=== PATIENT | female | born 1965 | race African-American/Black ===

== ENCOUNTER 2020-04-07 13:54 | Inpatient (IN) | payer MEDICAID ==
[~2020-04-07] VITALS: Ht 160 cm; Wt 86.8 kg
[~2020-04-07 13:54] MED LIST: AMLO1CAP PO; DOCU-150 PO; FAMO40TA7 PO; FLUP5TAB PO; LEVO100T PO; OLAN10TA3 PO; ZOLP5TAB2 PO
[2020-04-07] MEDS ORDERED: IPRATROPIUM/ALBUTEROL 0.5-3(2.5)MG/3ML NEB HHN ONE (14:15)
[2020-04-07 14:38] LABS: HEMATOCRIT. 33.8 % (36.0-48.0); HEMOGLOBIN. 11.5 g/dL (12.0-16.0); MEAN CORPUSCULAR HEMOGLOBIN 31.2 pg (28.0-32.0); MEAN CORPUSCULAR VOLUME 91.7 fL (81.0-99.0); MEAN PLATELET VOLUME 9.4 fl (7.4-10.4); PLATELET 139 x1000/uL (130-400); RED BLOOD CELL COUNT 3.69 mill/uL (4.2-5.4); RED CELL DISTRIBUTION WIDTH 13.5 % (11.6-14.6)
[2020-04-07 14:49] LABS: CHLORIDE 109 mEq/L (98-107)
[2020-04-07 14:57] LABS: BETA HYDROXYBUTYRATE 0.5 mMol/L (0.0-0.3)
[2020-04-07 15:00] LABS: PLATELET ESTIMATE NORMAL
[2020-04-07] MEDS ORDERED: AZITHROMYCIN 500 MG in DEXT 5% WATER 250 ML IV SCH (15:00)
[2020-04-07] MEDS ORDERED: FENTANYL CITRATE/PF 1,000 MCG in SODIUM CHLORIDE 0.9% 80 ML IV PRN (15:15)
[2020-04-07] MEDS ORDERED: IPRATROPIUM/ALBUTEROL 0.5-3(2.5)MG/3ML NEB HHN PRN (15:30)
[2020-04-07] MEDS ORDERED: MIDAZOLAM HCL 100 MG in DEXT 5% WATER 80 ML IV PRN (15:30)
[2020-04-07] MEDS: PROPOFOL 10MG/ML 100ML 100 ML IV PRN (15:45)
[2020-04-07] MEDS ORDERED: CEFTRIAXONE 1 G PREMIX 50 ML IV SCH (16:00)
[2020-04-07 16:08] LABS: BG BASE EXCESS -2.2 mmol/L (-2.0-2.0); BG CARBOXYHEMOGLOBIN 0.1 % (0.5-1.5); BG DEOXYHEMOGLOBIN 3.3 % (0.0-5.0); BG FRACTION INSPIRED OXYGEN 80; BG HCO3 ACT 21.3 mmol/L (22.0-26.0); BG OXYGEN SATURATION 96.7 % (92.0-98.5); BG OXYHEMOGLOBIN 95.6 % (94.0-97.0); BG PCO2 31.2 mmHg (35.0-45.0); BG PH 7.452 (7.350-7.450); BG PO2 99.8 mmHg (75.0-100.0); BG SAMPLE SITE RIGHT BRACHIAL; BG TIDAL VOLUME(mL) 500 mL; BG TOTAL HEMOGLOBIN 8.5 g/dL (12.0-18.0); BG VENT MODE VENT - A/C; BG VENT RATE 16 set
[2020-04-07] MEDS: MIDAZOLAM HCL 100 MG in DEXT 5% WATER 80 ML IV PRN (16:15)
[2020-04-07 16:26] LABS: PARTIAL THROMBOPLASTIN TIME 31.3 sec (23.4-31.0); PROTHROMBIN TIME 10.8 sec (9.6-11.0)
[2020-04-07 18:15] LABS: CLARITY URINE CLEAR (CLEAR); COLOR URINE YELLOW (YELLOW); KETONES URINE TRACE (NEGATIVE); LEUKOCYTE ESTERASE URINE NEGATIVE (NEGATIVE); NITRITE URINE NEGATIVE (NEGATIVE); OCCULT BLOOD URINE 1+ (NEGATIVE); PH URINE 5.5 (4.5-8.0); PROTEIN URINE 2+ (NEGATIVE); SPECIFIC GRAVITY URINE 1.026 (1.005-1.030)
[2020-04-07 18:32] LABS: *AMPHETAMINES SCREEN URINE NEGATIVE (NEGATIVE); *BARBITURATES SCREEN URINE NEGATIVE (NEGATIVE); *BENZODIAZEPINES SCREEN URINE NEGATIVE (NEGATIVE); *COCAINE SCREEN URINE NEGATIVE (NEGATIVE); METHADONE URINE SCREEN NEGATIVE (NEGATIVE)
[2020-04-07 18:34] LABS: CANNABINOID URINE SCREEN NEGATIVE (NEGATIVE); OPIATES URINE SCREEN PRESUMTIVE POSITIVE (NEGATIVE); PHENCYCLIDINE URINE SCREEN PRESUMTIVE POSITIVE (NEGATIVE)
[2020-04-07] MEDS: IPRATROPIUM/ALBUTEROL 0.5-3(2.5)MG/3ML NEB HHN SCH (20:35)
[2020-04-08] MEDS: IPRATROPIUM/ALBUTEROL 0.5-3(2.5)MG/3ML NEB HHN SCH ×6 (00:20→21:11)
[2020-04-08] MEDS: PROPOFOL 10MG/ML 100ML 100 ML IV PRN ×2 (04:08→11:38)
[2020-04-08 07:56] LABS: BG BASE EXCESS -0.1 mmol/L (-2.0-2.0); BG CARBOXYHEMOGLOBIN 0.3 % (0.5-1.5); BG DEOXYHEMOGLOBIN 0.9 % (0.0-5.0); BG HCO3 ACT 22.2 mmol/L (22.0-26.0); BG METHEMOGLOBIN 0.2 % (0.0-1.5); BG OXYGEN SATURATION 99.1 % (92.0-98.5); BG OXYHEMOGLOBIN 98.6 % (94.0-97.0); BG PCO2 28.2 mmHg (35.0-45.0); BG PH 7.513 (7.350-7.450); BG PO2 193.8 mmHg (75.0-100.0); BG SAMPLE SITE RIGHT RADIAL; BG TIDAL VOLUME(mL) 500 mL; BG TOTAL HEMOGLOBIN 10.5 g/dL (12.0-18.0); BG VENT MODE VENT - A/C; BG VENT RATE 20 set
[2020-04-08] MEDS: MIDAZOLAM HCL 100 MG in DEXT 5% WATER 80 ML IV PRN (08:19)
[2020-04-08 11:11] LABS: BASOPHILS % 0.2 % (0.0-2.0); EOSINOPHILS % 0.5 % (0.0-5.0); HEMATOCRIT. 30.4 % (36.0-48.0); HEMOGLOBIN. 10.6 g/dL (12.0-16.0); LYMPHOCYTES % 8.6 % (20.0-50.0); MEAN CORPUSCULAR HEMOGLOBIN 31.3 pg (28.0-32.0); MEAN CORPUSCULAR VOLUME 89.6 fL (81.0-99.0); MEAN PLATELET VOLUME 9.7 fl (7.4-10.4); NEUTROPHILS % 87.7 % (40.0-76.0); PLATELET 147 x1000/uL (130-400); RED CELL DISTRIBUTION WIDTH 13.4 % (11.6-14.6)
[2020-04-08 11:16] LABS: CHLORIDE 107 mEq/L (98-107)
[2020-04-08] MEDS: ENOXAPARIN 60MG/0.6ML SYR SUBCUT SCH ×2 (11:37→22:30)
[2020-04-08] MEDS: PANTOPRAZOLE SODIUM 40 MG/VIAL IV SCH (11:37)
[2020-04-08] MEDS: AZITHROMYCIN 500 MG in DEXT 5% WATER 250 ML IV SCH (15:05)
[2020-04-08] MEDS: CEFTRIAXONE 1 G PREMIX 50 ML IV SCH (16:18)
[2020-04-08] MEDS: DEXAMETHASONE 10 MG/ML VIAL IV SCH (20:53)
[2020-04-08] MEDS ORDERED: ACETAMINOPHEN 650MG SUPP PR NR (22:05)
[2020-04-08] MEDS ORDERED: PROPOFOL 10 MG/ML IV PRN (22:07)
[2020-04-09] VITALS (64 sets, daily range): BP systolic 84–132; BP diastolic 47–79
[2020-04-09] MEDS: IPRATROPIUM/ALBUTEROL 0.5-3(2.5)MG/3ML NEB HHN SCH ×6 (01:03→21:12)
[2020-04-09 09:10] LABS: BG BASE EXCESS 1.4 mmol/L (-2.0-2.0); BG CARBOXYHEMOGLOBIN 0.3 % (0.5-1.5); BG DEOXYHEMOGLOBIN 1.7 % (0.0-5.0); BG FRACTION INSPIRED OXYGEN 55; BG HCO3 ACT 25.4 mmol/L (22.0-26.0); BG METHEMOGLOBIN 0.2 % (0.0-1.5); BG OXYGEN SATURATION 98.3 % (92.0-98.5); BG OXYHEMOGLOBIN 97.8 % (94.0-97.0); BG PCO2 38.1 mmHg (35.0-45.0); BG PH 7.442 (7.350-7.450); BG PO2 133.6 mmHg (75.0-100.0); BG SAMPLE SITE RIGHT RADIAL; BG TIDAL VOLUME(mL) 500 mL; BG TOTAL HEMOGLOBIN 11.6 g/dL (12.0-18.0); BG VENT MODE VENT - A/C; BG VENT RATE 16 set
[2020-04-09] MEDS: PANTOPRAZOLE SODIUM 40 MG/VIAL IV SCH (09:32)
[2020-04-09] MEDS: ENOXAPARIN 60MG/0.6ML SYR SUBCUT SCH (09:32)
[2020-04-09] MEDS: FENTANYL CITRATE/PF 1,000 MCG in SODIUM CHLORIDE 0.9% 80 ML IV PRN ×2 (10:46→18:39)
[2020-04-09] MEDS: AZITHROMYCIN 500 MG in DEXT 5% WATER 250 ML IV SCH (15:02)
[2020-04-09] MEDS: CEFTRIAXONE 1 G PREMIX 50 ML IV SCH (15:02)
[2020-04-09] MEDS: DEXAMETHASONE 10 MG/ML VIAL IV SCH (20:25)
[2020-04-09] MEDS: ENOXAPARIN 80MG/0.8ML SYR SUBCUT SCH (20:26)
[2020-04-09] MEDS: MIDAZOLAM HCL 100 MG in DEXT 5% WATER 80 ML IV PRN (21:49)
[2020-04-10] VITALS (96 sets, daily range): BP systolic 77–170; BP diastolic 22–101
[2020-04-10] MEDS: IPRATROPIUM/ALBUTEROL 0.5-3(2.5)MG/3ML NEB HHN SCH ×6 (00:20→20:21)
[2020-04-10] MEDS: FENTANYL CITRATE/PF 1,000 MCG in SODIUM CHLORIDE 0.9% 80 ML IV PRN ×3 (04:47→21:40)
[2020-04-10 05:32] LABS: HEMATOCRIT. 31.1 % (36.0-48.0); HEMOGLOBIN. 10.6 g/dL (12.0-16.0); MEAN CORPUSCULAR HEMOGLOBIN 30.9 pg (28.0-32.0); MEAN CORPUSCULAR VOLUME 90.4 fL (81.0-99.0); MEAN PLATELET VOLUME 9.6 fl (7.4-10.4); PLATELET 211 x1000/uL (130-400); RED BLOOD CELL COUNT 3.45 mill/uL (4.2-5.4); RED CELL DISTRIBUTION WIDTH 13.6 % (11.6-14.6)
[2020-04-10 05:45] LABS: CHLORIDE 107 mEq/L (98-107)
[2020-04-10] MEDS: ENOXAPARIN 80MG/0.8ML SYR SUBCUT SCH ×2 (09:00→20:13)
[2020-04-10] MEDS: PANTOPRAZOLE SODIUM 40 MG/VIAL IV SCH (09:00)
[2020-04-10 09:50] LABS: BG BASE EXCESS 3.3 mmol/L (-2.0-2.0); BG CARBOXYHEMOGLOBIN 0.3 % (0.5-1.5); BG DEOXYHEMOGLOBIN 3.8 % (0.0-5.0); BG FRACTION INSPIRED OXYGEN 40; BG METHEMOGLOBIN 0.1 % (0.0-1.5); BG OXYGEN SATURATION 96.2 % (92.0-98.5); BG OXYHEMOGLOBIN 95.8 % (94.0-97.0); BG PCO2 37.7 mmHg (35.0-45.0); BG PH 7.473 (7.350-7.450); BG PO2 84.1 mmHg (75.0-100.0); BG SAMPLE SITE RIGHT RADIAL; BG TIDAL VOLUME(mL) 500 mL; BG TOTAL HEMOGLOBIN 10.3 g/dL (12.0-18.0); BG VENT MODE AC; BG VENT RATE 16 set
[2020-04-10 10:25] LABS: PLATELET ESTIMATE NORMAL
[2020-04-10] MEDS: MIDAZOLAM HCL 100 MG in DEXT 5% WATER 80 ML IV PRN (13:11)
[2020-04-10] MEDS: AZITHROMYCIN 500 MG in DEXT 5% WATER 250 ML IV SCH (15:45)
[2020-04-10] MEDS: CEFTRIAXONE 1 G PREMIX 50 ML IV SCH (16:59)
[2020-04-10] MEDS: DEXAMETHASONE 10 MG/ML VIAL IV SCH (20:13)
[2020-04-11] VITALS (98 sets, daily range): BP systolic 95–223; BP diastolic 57–92
[2020-04-11] MEDS: MIDAZOLAM HCL 100 MG in DEXT 5% WATER 80 ML IV PRN ×3 (00:13→20:01)
[2020-04-11] MEDS: IPRATROPIUM/ALBUTEROL 0.5-3(2.5)MG/3ML NEB HHN SCH ×6 (00:45→15:34)
[2020-04-11] MEDS: FENTANYL CITRATE/PF 2,500 MCG in SODIUM CHLORIDE 0.9% 200 ML IV PRN ×2 (04:12→20:00)
[2020-04-11 05:49] LABS: BASOPHILS % 0.2 % (0.0-2.0); EOSINOPHILS % 0.3 % (0.0-5.0); HEMATOCRIT. 37.8 % (36.0-48.0); HEMOGLOBIN. 12.7 g/dL (12.0-16.0); LYMPHOCYTES % 7.1 % (20.0-50.0); MEAN CORPUSCULAR HEMOGLOBIN 30.6 pg (28.0-32.0); MEAN CORPUSCULAR VOLUME 91.3 fL (81.0-99.0); MEAN PLATELET VOLUME 9.9 fl (7.4-10.4); MONOCYTES % 5.8 % (2.0-8.0); NEUTROPHILS % 86.6 % (40.0-76.0); PLATELET 240 x1000/uL (130-400); RED BLOOD CELL COUNT 4.14 mill/uL (4.2-5.4); RED CELL DISTRIBUTION WIDTH 13.5 % (11.6-14.6)
[2020-04-11 06:02] LABS: CHLORIDE 108 mEq/L (98-107)
[2020-04-11 07:53] LABS: BG CARBOXYHEMOGLOBIN 0.3 % (0.5-1.5); BG DEOXYHEMOGLOBIN 5.5 % (0.0-5.0); BG HCO3 ACT 23.5 mmol/L (22.0-26.0); BG METHEMOGLOBIN 0.2 % (0.0-1.5); BG OXYGEN SATURATION 94.5 % (92.0-98.5); BG PCO2 34.1 mmHg (35.0-45.0); BG PH 7.456 (7.350-7.450); BG PO2 74.9 mmHg (75.0-100.0); BG SAMPLE SITE RIGHT BRACHIAL; BG TIDAL VOLUME(mL) 500 mL; BG TOTAL HEMOGLOBIN 10.6 g/dL (12.0-18.0); BG VENT MODE VENT - A/C; BG VENT RATE 16 set
[2020-04-11] MEDS: PANTOPRAZOLE SODIUM 40 MG/VIAL IV SCH (09:14)
[2020-04-11] MEDS: ENOXAPARIN 80MG/0.8ML SYR SUBCUT SCH ×2 (09:14→20:07)
[2020-04-11] MEDS: CEFTRIAXONE 1 G PREMIX 50 ML IV SCH (16:08)
[2020-04-11] MEDS: AZITHROMYCIN 500 MG in DEXT 5% WATER 250 ML IV SCH (16:09)
[2020-04-11] MEDS: DEXAMETHASONE 10 MG/ML VIAL IV SCH (20:07)
[2020-04-12] VITALS (99 sets, daily range): BP systolic 72–193; BP diastolic 18–93
[2020-04-12] MEDS: IPRATROPIUM/ALBUTEROL 0.5-3(2.5)MG/3ML NEB HHN SCH ×4 (00:30→20:20)
[2020-04-12] MEDS ORDERED: NOREPINEPHRINE 4MG/250ML PMX 250 ML IV PRN (02:45)
[2020-04-12] MEDS: NOREPINEPHRINE 8 MG in DEXTROSE 5% WATER 250 ML IV PRN (04:05)
[2020-04-12 05:47] LABS: HEMATOCRIT. 30.8 % (36.0-48.0); HEMOGLOBIN. 10.6 g/dL (12.0-16.0); MEAN CORPUSCULAR HEMOGLOBIN 31.4 pg (28.0-32.0); MEAN CORPUSCULAR VOLUME 90.9 fL (81.0-99.0); MEAN PLATELET VOLUME 9.3 fl (7.4-10.4); PLATELET 280 x1000/uL (130-400); RED BLOOD CELL COUNT 3.39 mill/uL (4.2-5.4); RED CELL DISTRIBUTION WIDTH 13.6 % (11.6-14.6)
[2020-04-12 05:57] LABS: CHLORIDE 111 mEq/L (98-107)
[2020-04-12] MEDS: MIDAZOLAM HCL 100 MG in DEXT 5% WATER 80 ML IV PRN ×2 (07:45→17:29)
[2020-04-12] MEDS: PANTOPRAZOLE SODIUM 40 MG/VIAL IV SCH (08:16)
[2020-04-12] MEDS: ENOXAPARIN 80MG/0.8ML SYR SUBCUT SCH ×2 (08:18→20:51)
[2020-04-12] MEDS: ACETAMINOPHEN 650MG/20.3ML UDC PO PRN (09:10)
[2020-04-12 09:32] LABS: BG BASE EXCESS 1.1 mmol/L (-2.0-2.0); BG CARBOXYHEMOGLOBIN 0.2 % (0.5-1.5); BG DEOXYHEMOGLOBIN 5.9 % (0.0-5.0); BG FRACTION INSPIRED OXYGEN 60; BG HCO3 ACT 25.4 mmol/L (22.0-26.0); BG METHEMOGLOBIN 0.3 % (0.0-1.5); BG OXYGEN SATURATION 94.1 % (92.0-98.5); BG OXYHEMOGLOBIN 93.6 % (94.0-97.0); BG PH 7.431 (7.350-7.450); BG PO2 72.3 mmHg (75.0-100.0); BG SAMPLE SITE RIGHT RADIAL; BG TIDAL VOLUME(mL) 500 mL; BG VENT MODE VENT-PRVC; BG VENT RATE 14 set
[2020-04-12 10:38] LABS: PLATELET ESTIMATE NORMAL
[2020-04-12] MEDS: CEFTRIAXONE 1 G PREMIX 50 ML IV SCH (16:24)
[2020-04-12] MEDS: AZITHROMYCIN 500 MG in DEXT 5% WATER 250 ML IV SCH (16:24)
[2020-04-12] MEDS: FENTANYL CITRATE/PF 2,500 MCG in SODIUM CHLORIDE 0.9% 200 ML IV PRN (17:21)
[2020-04-12] MEDS: DEXAMETHASONE 10 MG/ML VIAL IV SCH (20:50)
[2020-04-13] VITALS (92 sets, daily range): BP systolic 81–148; BP diastolic 45–89
[2020-04-13] MEDS: MIDAZOLAM HCL 100 MG in DEXT 5% WATER 80 ML IV PRN ×2 (05:15→21:30)
[2020-04-13 05:36] LABS: CHLORIDE 108 mEq/L (98-107)
[2020-04-13 05:38] LABS: HEMATOCRIT. 29.4 % (36.0-48.0); HEMOGLOBIN. 10.2 g/dL (12.0-16.0); MEAN CORPUSCULAR HEMOGLOBIN 31.1 pg (28.0-32.0); PLATELET 257 x1000/uL (130-400); RED BLOOD CELL COUNT 3.26 mill/uL (4.2-5.4); RED CELL DISTRIBUTION WIDTH 13.8 % (11.6-14.6)
[2020-04-13 05:46] LABS: PHOSPHORUS 3.8 mg/dL (2.5-4.9)
[2020-04-13 06:09] LABS: HEPATITIS B SURFACE ANTIGEN NEGATIVE
[2020-04-13 06:39] LABS: HEPATITIS A AB IGM NEGATIVE (NEGATIVE)
[2020-04-13 06:44] LABS: C REACTIVE PROTEIN QUANT > 190.0 mg/L (0.0-3.0)
[2020-04-13 09:33] LABS: BG BASE EXCESS -1.5 mmol/L (-2.0-2.0); BG CARBOXYHEMOGLOBIN 0.3 % (0.5-1.5); BG DEOXYHEMOGLOBIN 8.8 % (0.0-5.0); BG FRACTION INSPIRED OXYGEN 60; BG HCO3 ACT 22.3 mmol/L (22.0-26.0); BG METHEMOGLOBIN 1.2 % (0.0-1.5); BG OXYGEN SATURATION 91.1 % (92.0-98.5); BG OXYHEMOGLOBIN 89.7 % (94.0-97.0); BG PH 7.434 (7.350-7.450); BG PO2 62.4 mmHg (75.0-100.0); BG SAMPLE SITE RIGHT RADIAL; BG TIDAL VOLUME(mL) 500 mL; BG TOTAL HEMOGLOBIN 10.7 g/dL (12.0-18.0); BG VENT MODE VENT- PRVC; BG VENT RATE 14 set
[2020-04-13] MEDS: PANTOPRAZOLE SODIUM 40 MG/VIAL IV SCH (09:35)
[2020-04-13] MEDS: ENOXAPARIN 80MG/0.8ML SYR SUBCUT SCH ×2 (09:36→22:26)
[2020-04-13] MEDS ORDERED: LACTULOSE 20G/30ML UDC PO NR (10:00)
[2020-04-13] MEDS: DOCUSATE SODIUM 250MG CAPSULE PO SCH (10:00)
[2020-04-13] MEDS: IPRATROPIUM/ALBUTEROL 0.5-3(2.5)MG/3ML NEB HHN SCH ×4 (10:02→21:35)
[2020-04-13 10:05] LABS: PLATELET ESTIMATE NORMAL
[2020-04-13] MEDS: NOREPINEPHRINE 8 MG in DEXTROSE 5% WATER 250 ML IV PRN (17:24)
[2020-04-13] MEDS: FENTANYL CITRATE/PF 2,500 MCG in SODIUM CHLORIDE 0.9% 200 ML IV PRN (19:52)
[2020-04-13] MEDS: DEXAMETHASONE 10 MG/ML VIAL IV SCH (22:24)
[2020-04-13] MEDS: ACETAMINOPHEN 650MG/20.3ML UDC PO PRN (22:27)
[2020-04-14] VITALS (68 sets, daily range): BP systolic 69–147; BP diastolic 21–87
[2020-04-14] MEDS: IPRATROPIUM/ALBUTEROL 0.5-3(2.5)MG/3ML NEB HHN SCH ×6 (01:25→20:15)
[2020-04-14 04:55] LABS: HEMATOCRIT. 30.9 % (36.0-48.0); HEMOGLOBIN. 10.2 g/dL (12.0-16.0); MEAN CORPUSCULAR VOLUME 90.9 fL (81.0-99.0); MEAN PLATELET VOLUME 9.2 fl (7.4-10.4); PLATELET 308 x1000/uL (130-400); RED CELL DISTRIBUTION WIDTH 14.2 % (11.6-14.6)
[2020-04-14 05:03] LABS: CHLORIDE 107 mEq/L (98-107)
[2020-04-14] MEDS ORDERED: BISACODYL 10MG SUPP PR SCH (08:30)
[2020-04-14 08:48] LABS: PLATELET ESTIMATE NORMAL
[2020-04-14] MEDS: ENOXAPARIN 80MG/0.8ML SYR SUBCUT SCH ×2 (08:50→19:59)
[2020-04-14] MEDS: DOCUSATE SODIUM 250MG CAPSULE PO SCH (08:50)
[2020-04-14] MEDS: PANTOPRAZOLE SODIUM 40 MG/VIAL IV SCH (09:00)
[2020-04-14 09:20] LABS: BG BASE EXCESS 2.2 mmol/L (-2.0-2.0); BG CARBOXYHEMOGLOBIN 0.2 % (0.5-1.5); BG DEOXYHEMOGLOBIN 1.8 % (0.0-5.0); BG FRACTION INSPIRED OXYGEN 60; BG HCO3 ACT 26.1 mmol/L (22.0-26.0); BG METHEMOGLOBIN 0.2 % (0.0-1.5); BG OXYGEN SATURATION 98.2 % (92.0-98.5); BG OXYHEMOGLOBIN 97.8 % (94.0-97.0); BG PCO2 37.8 mmHg (35.0-45.0); BG PH 7.457 (7.350-7.450); BG PO2 125.9 mmHg (75.0-100.0); BG SAMPLE SITE RIGHT RADIAL; BG TIDAL VOLUME(mL) 500 mL; BG TOTAL HEMOGLOBIN 10.4 g/dL (12.0-18.0); BG VENT MODE VENT-PRVC; BG VENT RATE 14 set
[2020-04-14] MEDS: NA PHOS,M-B/NA PHOS,DI-BA ENEMA 118ML PR PRN ×2 (16:45→17:30)
[2020-04-14] MEDS: MIDAZOLAM HCL 100 MG in DEXT 5% WATER 80 ML IV PRN (17:19)
[2020-04-14] MEDS: DEXAMETHASONE 10 MG/ML VIAL IV SCH (19:58)
[2020-04-14] MEDS: GUAIFENESIN 200MG/10ML SUGAR FREE UDC PO PRN (19:59)
[2020-04-14] MEDS: ACETAMINOPHEN 650MG/20.3ML UDC PO PRN (20:00)
[2020-04-15] VITALS (30 sets, daily range): BP systolic 94–157; BP diastolic 46–75
[2020-04-15] MEDS: IPRATROPIUM/ALBUTEROL 0.5-3(2.5)MG/3ML NEB HHN SCH ×6 (00:58→20:16)
[2020-04-15 05:24] LABS: HEMOGLOBIN. 9.6 g/dL (12.0-16.0); MEAN CORPUSCULAR VOLUME 90.6 fL (81.0-99.0); MEAN PLATELET VOLUME 9.2 fl (7.4-10.4); PLATELET 313 x1000/uL (130-400); RED CELL DISTRIBUTION WIDTH 14.1 % (11.6-14.6)
[2020-04-15 05:26] LABS: CHLORIDE 109 mEq/L (98-107)
[2020-04-15 08:26] LABS: BG BASE EXCESS 6.4 mmol/L (-2.0-2.0); BG CARBOXYHEMOGLOBIN 0.2 % (0.5-1.5); BG DEOXYHEMOGLOBIN 2.3 % (0.0-5.0); BG FRACTION INSPIRED OXYGEN 60; BG METHEMOGLOBIN 0.9 % (0.0-1.5); BG OXYGEN SATURATION 97.7 % (92.0-98.5); BG OXYHEMOGLOBIN 96.6 % (94.0-97.0); BG PCO2 51.7 mmHg (35.0-45.0); BG PO2 125.1 mmHg (75.0-100.0); BG SAMPLE SITE RIGHT RADIAL; BG TIDAL VOLUME(mL) 500 mL; BG TOTAL HEMOGLOBIN 9.9 g/dL (12.0-18.0); BG VENT MODE PRVC; BG VENT RATE 12 set
[2020-04-15] MEDS: PANTOPRAZOLE SODIUM 40 MG/VIAL IV SCH (09:00)
[2020-04-15] MEDS: DOCUSATE SODIUM 250MG CAPSULE PO SCH (09:00)
[2020-04-15] MEDS: ENOXAPARIN 80MG/0.8ML SYR SUBCUT SCH ×2 (09:00→22:04)
[2020-04-15 09:47] LABS: PLATELET ESTIMATE NORMAL
[2020-04-15] MEDS ORDERED: REMDESIVIR 200 MG in SODIUM CHLORIDE 0.9% 250 ML IV NR (14:00)
[2020-04-15] MEDS: FENTANYL CITRATE/PF 2,500 MCG in SODIUM CHLORIDE 0.9% 200 ML IV PRN (15:09)
[2020-04-15] MEDS: DEXAMETHASONE 10 MG/ML VIAL IV SCH (22:02)
[2020-04-15] MEDS: GUAIFENESIN 200MG/10ML SUGAR FREE UDC PO PRN (22:05)
[2020-04-15] MEDS: ACETAMINOPHEN 650MG/20.3ML UDC PO PRN (22:09)
[2020-04-16] VITALS (82 sets, daily range): BP systolic 80–142; BP diastolic 42–104
[2020-04-16] MEDS: IPRATROPIUM/ALBUTEROL 0.5-3(2.5)MG/3ML NEB HHN SCH ×6 (00:37→20:50)
[2020-04-16 05:24] LABS: HEMATOCRIT. 28.3 % (36.0-48.0); HEMOGLOBIN. 9.2 g/dL (12.0-16.0); MEAN CORPUSCULAR HEMOGLOBIN 29.6 pg (28.0-32.0); MEAN PLATELET VOLUME 8.7 fl (7.4-10.4); PLATELET 302 x1000/uL (130-400); RED BLOOD CELL COUNT 3.11 mill/uL (4.2-5.4); RED CELL DISTRIBUTION WIDTH 14.1 % (11.6-14.6)
[2020-04-16 05:28] LABS: CHLORIDE 110 mEq/L (98-107)
[2020-04-16] MEDS: PANTOPRAZOLE SODIUM 40 MG/VIAL IV SCH (08:16)
[2020-04-16] MEDS: ENOXAPARIN 80MG/0.8ML SYR SUBCUT SCH ×2 (08:17→20:47)
[2020-04-16 08:20] LABS: PLATELET ESTIMATE NORMAL
[2020-04-16 09:07] LABS: BG BASE EXCESS 2.8 mmol/L (-2.0-2.0); BG CARBOXYHEMOGLOBIN 0.3 % (0.5-1.5); BG DEOXYHEMOGLOBIN 2.1 % (0.0-5.0); BG FRACTION INSPIRED OXYGEN 50; BG HCO3 ACT 27.1 mmol/L (22.0-26.0); BG METHEMOGLOBIN 0.4 % (0.0-1.5); BG OXYGEN SATURATION 97.9 % (92.0-98.5); BG OXYHEMOGLOBIN 97.2 % (94.0-97.0); BG PCO2 40.4 mmHg (35.0-45.0); BG PH 7.444 (7.350-7.450); BG PO2 111.2 mmHg (75.0-100.0); BG SAMPLE SITE RIGHT BRACHIAL; BG TIDAL VOLUME(mL) 500 mL; BG TOTAL HEMOGLOBIN 9.2 g/dL (12.0-18.0); BG VENT MODE PRVC; BG VENT RATE 12 set
[2020-04-16] MEDS: DOCUSATE SODIUM SUGAR FREE 100MG/10ML UDC NG SCH (11:03)
[2020-04-16] MEDS: PIPERACILLIN/TAZOBACTAM 3.375 G in DEXT 5% WATER 100 ML IV SCH ×3 (12:44→23:11)
[2020-04-16] MEDS: REMDESIVIR 100 MG in SODIUM CHLORIDE 0.9% 250 ML IV SCH (15:22)
[2020-04-16] MEDS: GUAIFENESIN 200MG/10ML SUGAR FREE UDC PO PRN ×2 (18:38→20:45)
[2020-04-16] MEDS: MIDAZOLAM HCL 100 MG in DEXT 5% WATER 80 ML IV PRN (20:44)
[2020-04-16] MEDS: ACETAMINOPHEN 650MG/20.3ML UDC PO PRN (20:45)
[2020-04-16] MEDS: DEXAMETHASONE 4MG/ML 1ML VIAL IV SCH (20:57)
[2020-04-17] VITALS (86 sets, daily range): BP systolic 52–142; BP diastolic 23–83
[2020-04-17] MEDS: IPRATROPIUM/ALBUTEROL 0.5-3(2.5)MG/3ML NEB HHN SCH ×6 (00:24→20:59)
[2020-04-17 05:47] LABS: HEMATOCRIT. 28.5 % (36.0-48.0); HEMOGLOBIN. 9.3 g/dL (12.0-16.0); MEAN CORPUSCULAR VOLUME 91.5 fL (81.0-99.0); MEAN PLATELET VOLUME 8.9 fl (7.4-10.4); PLATELET 295 x1000/uL (130-400); RED BLOOD CELL COUNT 3.11 mill/uL (4.2-5.4); RED CELL DISTRIBUTION WIDTH 13.6 % (11.6-14.6)
[2020-04-17 06:04] LABS: CHLORIDE 106 mEq/L (98-107)
[2020-04-17] MEDS: PIPERACILLIN/TAZOBACTAM 3.375 G in DEXT 5% WATER 100 ML IV SCH ×4 (06:41→22:43)
[2020-04-17] MEDS: PANTOPRAZOLE SODIUM 40 MG/VIAL IV SCH (08:00)
[2020-04-17] MEDS: GUAIFENESIN 200MG/10ML SUGAR FREE UDC PO PRN ×3 (08:00→20:22)
[2020-04-17] MEDS: ENOXAPARIN 80MG/0.8ML SYR SUBCUT SCH ×2 (08:00→20:22)
[2020-04-17] MEDS: ACETAMINOPHEN 650MG/20.3ML UDC PO PRN ×3 (08:00→22:47)
[2020-04-17] MEDS: DOCUSATE SODIUM SUGAR FREE 100MG/10ML UDC NG SCH (08:00)
[2020-04-17 09:27] LABS: BG BASE EXCESS 1.9 mmol/L (-2.0-2.0); BG CARBOXYHEMOGLOBIN 0.3 % (0.5-1.5); BG DEOXYHEMOGLOBIN 4.8 % (0.0-5.0); BG FRACTION INSPIRED OXYGEN 50; BG HCO3 ACT 26.2 mmol/L (22.0-26.0); BG METHEMOGLOBIN 0.1 % (0.0-1.5); BG OXYGEN SATURATION 95.2 % (92.0-98.5); BG OXYHEMOGLOBIN 94.8 % (94.0-97.0); BG PCO2 39.8 mmHg (35.0-45.0); BG PH 7.436 (7.350-7.450); BG PO2 79.9 mmHg (75.0-100.0); BG SAMPLE SITE RIGHT RADIAL; BG TIDAL VOLUME(mL) 500 mL; BG TOTAL HEMOGLOBIN 9.8 g/dL (12.0-18.0); BG VENT MODE VENT- PRVC; BG VENT RATE 12 set
[2020-04-17 09:55] LABS: PLATELET ESTIMATE NORMAL
[2020-04-17] MEDS: REMDESIVIR 100 MG in SODIUM CHLORIDE 0.9% 250 ML IV SCH (17:37)
[2020-04-17] MEDS: DEXAMETHASONE 4MG/ML 1ML VIAL IV SCH (20:21)
[2020-04-17] MEDS: FENTANYL CITRATE/PF 1,000 MCG in SODIUM CHLORIDE 0.9% 80 ML IV PRN (23:47)
[2020-04-18] VITALS (66 sets, daily range): BP systolic 57–117; BP diastolic 26–63
[2020-04-18] MEDS: IPRATROPIUM/ALBUTEROL 0.5-3(2.5)MG/3ML NEB HHN SCH ×6 (00:52→21:00)
[2020-04-18] MEDS: ACETAMINOPHEN 650MG/20.3ML UDC PO PRN ×3 (03:18→21:56)
[2020-04-18] MEDS: PIPERACILLIN/TAZOBACTAM 3.375 G in DEXT 5% WATER 100 ML IV SCH ×4 (05:45→23:20)
[2020-04-18 05:51] LABS: HEMOGLOBIN. 10.3 g/dL (12.0-16.0); MEAN CORPUSCULAR HEMOGLOBIN 30.6 pg (28.0-32.0); MEAN CORPUSCULAR VOLUME 91.9 fL (81.0-99.0); MEAN PLATELET VOLUME 9.5 fl (7.4-10.4); PLATELET 299 x1000/uL (130-400); RED BLOOD CELL COUNT 3.37 mill/uL (4.2-5.4); RED CELL DISTRIBUTION WIDTH 13.7 % (11.6-14.6)
[2020-04-18 05:53] LABS: CHLORIDE 106 mEq/L (98-107)
[2020-04-18] MEDS: PANTOPRAZOLE SODIUM 40 MG/VIAL IV SCH (08:06)
[2020-04-18] MEDS: DOCUSATE SODIUM SUGAR FREE 100MG/10ML UDC NG SCH (08:06)
[2020-04-18] MEDS: GUAIFENESIN 200MG/10ML SUGAR FREE UDC PO PRN ×2 (08:06→21:55)
[2020-04-18] MEDS: ENOXAPARIN 80MG/0.8ML SYR SUBCUT SCH (08:07)
[2020-04-18 09:06] LABS: PLATELET ESTIMATE NORMAL
[2020-04-18] MEDS ORDERED: FUROSEMIDE 40MG/4ML VIAL IVP NR (10:15)
[2020-04-18 10:16] LABS: BG BASE EXCESS 2.5 mmol/L (-2.0-2.0); BG CARBOXYHEMOGLOBIN 0.7 % (0.5-1.5); BG DEOXYHEMOGLOBIN 13.1 % (0.0-5.0); BG FRACTION INSPIRED OXYGEN 50; BG HCO3 ACT 26.7 mmol/L (22.0-26.0); BG METHEMOGLOBIN 0.3 % (0.0-1.5); BG OXYGEN SATURATION 86.8 % (92.0-98.5); BG OXYHEMOGLOBIN 85.9 % (94.0-97.0); BG PH 7.443 (7.350-7.450); BG PO2 52.4 mmHg (75.0-100.0); BG SAMPLE SITE LEFT RADIAL; BG TIDAL VOLUME(mL) 500 mL; BG TOTAL HEMOGLOBIN 8.4 g/dL (12.0-18.0); BG VENT MODE VENT - A/C; BG VENT RATE 12 set
[2020-04-18] MEDS: REMDESIVIR 100 MG in SODIUM CHLORIDE 0.9% 250 ML IV SCH (14:55)
[2020-04-18] MEDS: MIDAZOLAM HCL 100 MG in DEXT 5% WATER 80 ML IV PRN (19:20)
[2020-04-18] MEDS: ENOXAPARIN 100MG/ML SYR SUBCUT SCH (21:55)
[2020-04-19] VITALS (62 sets, daily range): BP systolic 57–141; BP diastolic 16–80
[2020-04-19] MEDS: IPRATROPIUM/ALBUTEROL 0.5-3(2.5)MG/3ML NEB HHN SCH ×5 (00:20→20:25)
[2020-04-19 05:53] LABS: HEMATOCRIT. 27.8 % (36.0-48.0); HEMOGLOBIN. 9.1 g/dL (12.0-16.0); MEAN CORPUSCULAR HEMOGLOBIN 29.7 pg (28.0-32.0); MEAN CORPUSCULAR VOLUME 90.5 fL (81.0-99.0); MEAN PLATELET VOLUME 9.1 fl (7.4-10.4); PLATELET 281 x1000/uL (130-400); RED BLOOD CELL COUNT 3.08 mill/uL (4.2-5.4); RED CELL DISTRIBUTION WIDTH 13.9 % (11.6-14.6)
[2020-04-19 05:55] LABS: CHLORIDE 104 mEq/L (98-107)
[2020-04-19] MEDS: PIPERACILLIN/TAZOBACTAM 3.375 G in DEXT 5% WATER 100 ML IV SCH ×4 (07:12→22:19)
[2020-04-19] MEDS: ENOXAPARIN 100MG/ML SYR SUBCUT SCH ×2 (08:27→21:10)
[2020-04-19] MEDS: PANTOPRAZOLE SODIUM 40 MG/VIAL IV SCH (08:27)
[2020-04-19] MEDS: DOCUSATE SODIUM SUGAR FREE 100MG/10ML UDC NG SCH (08:27)
[2020-04-19 09:48] LABS: BG BASE EXCESS 2.1 mmol/L (-2.0-2.0); BG CARBOXYHEMOGLOBIN 0.8 % (0.5-1.5); BG DEOXYHEMOGLOBIN 2.9 % (0.0-5.0); BG FRACTION INSPIRED OXYGEN 800; BG HCO3 ACT 25.7 mmol/L (22.0-26.0); BG METHEMOGLOBIN 0.3 % (0.0-1.5); BG OXYGEN SATURATION 97.1 % (92.0-98.5); BG PCO2 36.1 mmHg (35.0-45.0); BG PO2 90.4 mmHg (75.0-100.0); BG SAMPLE SITE RIGHT RADIAL; BG TIDAL VOLUME(mL) 500 mL; BG TOTAL HEMOGLOBIN 10.8 g/dL (12.0-18.0); BG VENT MODE VENT - A/C PRVC; BG VENT RATE 12 set
[2020-04-19 10:29] LABS: PLATELET ESTIMATE NORMAL
[2020-04-19] MEDS ORDERED: POTASSIUM CHLORIDE 20MEQ TABLET SR PO NR (10:45)
[2020-04-19] MEDS: METOCLOPRAMIDE HCL 10MG/2ML VIAL IV SCH ×2 (12:10→18:15)
[2020-04-19 15:11] LABS: 7-AMINOCLONAZEPAM CONFIRM Negative (.); ALPRAZOLAM CONFIRM Negative (.); BARBITURATE SCREEN Negative ug/mL (Cutoff:0.1); BENZODIAZEPINE SCREEN ++POSITIVE++ ng/mL (Cutoff:20); CHLORDIAZEPOXIDE CONFIRM Negative (.); CLONAZEPAM CONFIRM Negative (.); DESMETHYLCHLORDIAZEPOXIDE Negative (.); DIAZEPAM CONFIRM Negative (.); FLURAZEPAM CONFIRM Negative (.); LORAZEPAM CONFIRM Negative (.); MIDAZOLAM CONFIRM 327 ng/mL (.); OPIATES SCREEN Negative ng/mL (Cutoff:5); OXAZEPAM CONFIRM Negative (.); PHENCYCLIDINE SCREEN Negative ng/mL (Cutoff:8); TEMAZEPAM CONFIRM Negative (.); TRIAZOLAM CONFIRM Negative (.)
[2020-04-19] MEDS: REMDESIVIR 100 MG in SODIUM CHLORIDE 0.9% 250 ML IV SCH (15:18)
[2020-04-19] MEDS: FENTANYL CITRATE/PF 1,000 MCG in SODIUM CHLORIDE 0.9% 80 ML IV PRN ×2 (18:06→23:39)
[2020-04-19] MEDS ORDERED: PROPOFOL 10MG/ML 100ML 100 ML IV PRN (19:00)
[2020-04-19] MEDS: MIDAZOLAM HCL 100 MG in DEXT 5% WATER 80 ML IV PRN (20:16)
[2020-04-19] MEDS: ACETAMINOPHEN 650MG/20.3ML UDC PO PRN (21:11)
[2020-04-19] MEDS: GUAIFENESIN 200MG/10ML SUGAR FREE UDC PO PRN (21:11)
[2020-04-19] MEDS: NOREPINEPHRINE 8 MG in DEXTROSE 5% WATER 250 ML IV PRN (23:40)
[2020-04-20] VITALS (69 sets, daily range): BP systolic 48–140; BP diastolic 15–82
[2020-04-20] MEDS: IPRATROPIUM/ALBUTEROL 0.5-3(2.5)MG/3ML NEB HHN SCH ×5 (00:25→20:50)
[2020-04-20] MEDS: METOCLOPRAMIDE HCL 10MG/2ML VIAL IV SCH ×4 (00:44→18:20)
[2020-04-20 05:55] LABS: CHLORIDE 104 mEq/L (98-107)
[2020-04-20 06:02] LABS: HEMATOCRIT. 29.8 % (36.0-48.0); HEMOGLOBIN. 9.7 g/dL (12.0-16.0); MEAN CORPUSCULAR HEMOGLOBIN 29.6 pg (28.0-32.0); MEAN CORPUSCULAR VOLUME 91.2 fL (81.0-99.0); MEAN PLATELET VOLUME 9.1 fl (7.4-10.4); PLATELET 336 x1000/uL (130-400); RED BLOOD CELL COUNT 3.27 mill/uL (4.2-5.4); RED CELL DISTRIBUTION WIDTH 14.8 % (11.6-14.6)
[2020-04-20] MEDS: PIPERACILLIN/TAZOBACTAM 3.375 G in DEXT 5% WATER 100 ML IV SCH ×3 (06:17→18:20)
[2020-04-20] MEDS: MIDAZOLAM HCL 100 MG in DEXT 5% WATER 80 ML IV PRN ×2 (06:53→18:50)
[2020-04-20] MEDS: FENTANYL CITRATE/PF 1,000 MCG in SODIUM CHLORIDE 0.9% 80 ML IV PRN ×3 (07:52→18:50)
[2020-04-20] MEDS: PANTOPRAZOLE SODIUM 40 MG/VIAL IV SCH (08:40)
[2020-04-20] MEDS: ENOXAPARIN 100MG/ML SYR SUBCUT SCH ×2 (08:40→21:13)
[2020-04-20] MEDS: DOCUSATE SODIUM SUGAR FREE 100MG/10ML UDC NG SCH (08:40)
[2020-04-20 12:54] LABS: BG BASE EXCESS 4.6 mmol/L (-2.0-2.0); BG CARBOXYHEMOGLOBIN 1.9 % (0.5-1.5); BG DEOXYHEMOGLOBIN 14.4 % (0.0-5.0); BG FRACTION INSPIRED OXYGEN 100; BG HCO3 ACT 30.7 mmol/L (22.0-26.0); BG METHEMOGLOBIN 0.6 % (0.0-1.5); BG OXYGEN SATURATION 85.2 % (92.0-98.5); BG OXYHEMOGLOBIN 83.1 % (94.0-97.0); BG PCO2 54.1 mmHg (35.0-45.0); BG PH 7.372 (7.350-7.450); BG PO2 51.8 mmHg (75.0-100.0); BG SAMPLE SITE LEFT RADIAL; BG TOTAL HEMOGLOBIN 9.2 g/dL (12.0-18.0); BG VENT MODE VENT - PCV; BG VENT RATE 24 set
[2020-04-20 12:58] LABS: PLATELET ESTIMATE NORMAL
[2020-04-20 17:06] LABS: CLARITY URINE CLOUDY (CLEAR); COLOR URINE DARK YELLOW (YELLOW); KETONES URINE NEGATIVE (NEGATIVE); LEUKOCYTE ESTERASE URINE TRACE (NEGATIVE); NITRITE URINE NEGATIVE (NEGATIVE); OCCULT BLOOD URINE 3+ (NEGATIVE); PROTEIN URINE 2+ (NEGATIVE); SPECIFIC GRAVITY URINE 1.036 (1.005-1.030)
[2020-04-20] MEDS: NOREPINEPHRINE 8 MG in DEXTROSE 5% WATER 250 ML IV PRN (18:47)
[2020-04-20] MEDS ORDERED: NOREPINEPHRINE 32 MG in DEXT 5% WATER 468 ML IV PRN (22:00)
[2020-04-20] MEDS ORDERED: FENTANYL CITRATE/PF 2,500 MCG in SODIUM CHLORIDE 0.9% 200 ML IV PRN (23:30)
[2020-04-20] MEDS ORDERED: FENTANYL CITRATE/PF 1,000 MCG in SODIUM CHLORIDE 0.9% 80 ML IV PRN (23:45)
[2020-04-21] VITALS (24 sets, daily range): BP systolic 45–211; BP diastolic 15–89
[2020-04-21] MEDS: PIPERACILLIN/TAZOBACTAM 3.375 G in DEXT 5% WATER 100 ML IV SCH ×2 (00:02→05:32)
[2020-04-21] MEDS: METOCLOPRAMIDE HCL 10MG/2ML VIAL IV SCH ×3 (00:02→11:00)
[2020-04-21] MEDS ORDERED: PROPOFOL 10MG/ML 100ML 100 ML IV PRN (00:15)
[2020-04-21] MEDS: PHENYLEPHRINE 80 MG in DEXT 5% WATER 492 ML IV PRN ×2 (01:12→07:28)
[2020-04-21] MEDS: VASOPRESSIN 10 UNIT in SODIUM CHLORIDE 0.9% 99.5 ML IV PRN ×2 (02:26→05:47)
[2020-04-21] MEDS: IPRATROPIUM/ALBUTEROL 0.5-3(2.5)MG/3ML NEB HHN SCH ×4 (04:20→09:30)
[2020-04-21 05:29] LABS: BASOPHILS % 0.5 % (0.0-2.0); EOSINOPHILS % 1.1 % (0.0-5.0); HEMATOCRIT. 29.8 % (36.0-48.0); HEMOGLOBIN. 9.9 g/dL (12.0-16.0); MEAN CORPUSCULAR HEMOGLOBIN 30.4 pg (28.0-32.0); MEAN CORPUSCULAR VOLUME 91.7 fL (81.0-99.0); MEAN PLATELET VOLUME 9.3 fl (7.4-10.4); MONOCYTES % 3.7 % (2.0-8.0); NEUTROPHILS % 86.7 % (40.0-76.0); PLATELET 319 x1000/uL (130-400); RED BLOOD CELL COUNT 3.25 mill/uL (4.2-5.4); RED CELL DISTRIBUTION WIDTH 14.7 % (11.6-14.6)
[2020-04-21] MEDS: PANTOPRAZOLE SODIUM 40 MG/VIAL IV SCH (08:41)
[2020-04-21] MEDS: DOCUSATE SODIUM SUGAR FREE 100MG/10ML UDC NG SCH (08:41)
[2020-04-21] MEDS: ENOXAPARIN 100MG/ML SYR SUBCUT SCH (08:59)
[2020-04-21] MEDS: ACETAMINOPHEN 650MG/20.3ML UDC PO PRN (08:59)
[2020-04-21 09:07] LABS: BG BASE EXCESS -4.5 mmol/L (-2.0-2.0); BG CARBOXYHEMOGLOBIN 1.3 % (0.5-1.5); BG DEOXYHEMOGLOBIN 13.1 % (0.0-5.0); BG FRACTION INSPIRED OXYGEN 100; BG HCO3 ACT 23.5 mmol/L (22.0-26.0); BG OXYGEN SATURATION 86.7 % (92.0-98.5); BG OXYHEMOGLOBIN 85.6 % (94.0-97.0); BG PCO2 58.1 mmHg (35.0-45.0); BG PH 7.224 (7.350-7.450); BG PO2 59.8 mmHg (75.0-100.0); BG SAMPLE SITE RIGHT RADIAL; BG TOTAL HEMOGLOBIN 10.1 g/dL (12.0-18.0); BG VENT MODE VENT - PCV; BG VENT RATE 24 set
[2020-04-21] MEDS ORDERED: SODIUM CHLORIDE 0.9% 1,000 ML IV SCH (10:30)
== END 2020-04-21 11:49 | disposition expired | DRG 720 ==
LOC: ER 13:54 → MICUSO 14:38
PROVIDERS: ADMIT Internal Medicine; ATTEND Internal Medicine
PROC: 5A1955Z Respiratory Ventilation, Greater than 96 Consecutive Hours (ICD-10-PCS; principal; 2020-04-07)
PROC: 0BH17EZ Insertion of Endotracheal Airway into Trachea, Via Natural or Artificial Opening (ICD-10-PCS; 2020-04-07)
PROC: 05HY33Z Insertion of Infusion Device into Upper Vein, Percutaneous Approach (ICD-10-PCS; 2020-04-08)
PROC: B54MZZA Ultrasonography of Right Upper Extremity Veins, Guidance (ICD-10-PCS; 2020-04-08)
PROC: 30233K1 Transfusion of Nonautologous Frozen Plasma into Peripheral Vein, Percutaneous Approach (ICD-10-PCS; 2020-04-12)
DX: A41.89 Other specified sepsis (principal); U07.1 COVID-19; D64.9 Anemia, unspecified; E43 Unspecified severe protein-calorie malnutrition; E87.8 Other disorders of electrolyte and fluid balance, not elsewhere classified; J12.89 Other viral pneumonia; F03.90 Unspecified dementia, unspecified severity, without behavioral disturbance, psychotic disturbance, mood disturbance, and anxiety; F79 Unspecified intellectual disabilities; G40.909 Epilepsy, unspecified, not intractable, without status epilepticus; J96.01 Acute respiratory failure with hypoxia; N17.0 Acute kidney failure with tubular necrosis; R65.21 Severe sepsis with septic shock; Z66 Do not resuscitate; F41.9 Anxiety disorder, unspecified; R74.0 Nonspecific elevation of levels of transaminase and lactic acid dehydrogenase [LDH]; K21.9 Gastro-esophageal reflux disease without esophagitis; Z68.33 Body mass index [BMI] 33.0-33.9, adult; Z79.899 Other long term (current) drug therapy; Z78.1 Physical restraint status
CPT/HCPCS: 36415; 36600; 71045; 76937; 80048; 80053; 80076; 80305; 80307; 81003; 82010; 82375; 82728; 82805; 82962; 83036; 83605; 83615; 83735; 83880; 84100; 84145; 84478; 84484; 85025; 85379; 85651; 86140; 86705; 86709; 86803; 86850; 86900; 86927; 87340; 87635; 93005; 94002; 94003; 94640; 96365; 99291; C1725; C9113; J0456; J0696; J1100; J1650; J1940; J2250; J2370; J2543; J2704; J2765; J3010; J3490; J7050; J7060; P9017; Q9957; U0003-CS